=== PATIENT | male | born 1990 | race Caucasian/White ===

== ENCOUNTER 2017-09-23 04:32 | Emergency (ER) | payer MEDICAID, OTHER ==
[~2017-09-23] VITALS: Ht 190.5 cm; Wt 82.0 kg
[2017-09-23 04:33] VITALS: Ht 190.5 cm; Wt 82.0 kg
[2017-09-23] MEDS ORDERED: KETOROLAC 60 MG INJ IM STA (04:42)
[2017-09-23] MEDS ORDERED: IBUP800T25 PO (04:46)
[2017-09-23] MEDS ORDERED: CYCL-319 PO (04:46)
--- NOTE | 2017-09-23 04:49 | ERD ---
ER Documentation Chief Complaint Chief Complaint c/o mid back pain x yrs. Worse with cold weather. Has "scoliosis" per mom HPI 27-year-old male is complaining of back pain that is chronic that he states he has had for multiple years. Gets worse in cold weather. Denies any injury or trauma but states that his mother told him he has scoliosis. He does not take any medications for this. No bowel or bladder incontinence. No saddle anesthesia. ROS All systems reviewed and are negative except as per history of present illness. Medications Home Meds Active Scripts Ibuprofen* (Motrin*) 800 Mg Tab, 800 MG PO Q6, #30 TAB Prov:PRAKASH COLLAZO PA-C 09/23/17 Cyclobenzaprine Hcl* (Cyclobenzaprine Hcl*) 10 Mg Tablet, 10 MG PO BID, #20 TAB Prov:PRAKASH COLLAZO PA-C 09/23/17 FmHx Family History: No diabetes Physical Exam Vitals Vital Signs Date Time Temp Pulse Resp B/P Pulse Ox O2 Delivery O2 Flow Rate FiO2 09/23/17 04:33 97.6 74 20 118/76 97 Physical Exam Const: [] Head: Atraumatic Neck: Full range of motion..~ No meningismus. Resp: Clear to auscultation bilaterally Cardio: Regular rate and rhythm, no murmurs Skin: No petechiae or rashes Back: No midline or flank tenderness Ext: No cyanosis, or edema Results 24 hrs Current Medications Medications (Trade) Dose Ordered Sig/Reanna Route PRN Reason Start Time Stop Time Status Last Admin Dose Admin Ketorolac Tromethamine (Toradol) 60 mg ONCE STAT IM 09/23/17 04:42 09/23/17 04:43 DC Procedures/MDM Patient presents with chronic back pain. The differential diagnosis includes but is not limited to muscle strain, ligament strain, contusion, arthritis, discogenetic disease, non-musculoskeletal, cauda equina syndrome, cord compression, abscess and others. Patient was given Toradol here and discharged with ibuprofen and Flexeril. Patient counseled regarding my diagnostic impression and care plan. Prior to discharge all questions answered. Pt agrees with treatment plan and understands strict return precautions. Pt is instructed to follow up with primary care provider within 24-48 hours. Precautionary instructions provided including instructions to return to the ER if not improving or for any worsening or changing symptoms or concerns. Departure Diagnosis: Primary Impression: Back pain Condition: Stable Patient Instructions: Back Pain (Acute Or Chronic) Additional Instructions: Call your primary care doctor TOMORROW for an appointment during the next 1-2 days.See the doctor sooner or return here if your condition worsens before your appointment time. PRAKASH COLLAZO PA-C Sep 23, 2017 04:49
== END 2017-09-23 05:25 | disposition home or self-care (01) ==
LOC: FTE 04:32
DX: M54.9 Dorsalgia, unspecified (principal)
CPT/HCPCS: 96372; J1885; Z7502